=== PATIENT | male | born 1980 | race African-American/Black ===

== ENCOUNTER 2017-12-09 18:15 | Emergency (ER) | payer OTHER ==
[2017-12-09] MEDS ORDERED: Proparacaine 0.5% Ophth Soln 15 ML Bottle EYEBOTH STA (18:31)
[2017-12-09] MEDS ORDERED: Erythromycin Base 0.5% Ophth Oint 1 GM Tube EYEBOTH ONE (18:49)
[2017-12-09] MEDS ORDERED: Diphtheria,Pertussis(Acell),Tetanus Vaccine 0.5 ML Syringe IM ONE (18:49)
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
== END 2017-12-09 20:15 | disposition home or self-care (01) ==
LOC: MW.ED 18:15
DX: S05.02XA Injury of conjunctiva and corneal abrasion without foreign body, left eye, initial encounter (principal); S50.811A Abrasion of right forearm, initial encounter; R07.81 Pleurodynia; E11.9 Type 2 diabetes mellitus without complications; E66.9 Obesity, unspecified; Z79.899 Other long term (current) drug therapy; W25.XXXA Contact with sharp glass, initial encounter
CPT/HCPCS: 71101; 90471; 90715; 99283; A9270